=== PATIENT | female | born 1995 | race Caucasian/White ===

== ENCOUNTER 2017-08-05 09:20 | Outpatient (CLI) | payer OTHER ==
[~2017-08-05 09:20] MED LIST: PEPCID AC20 MG PO; ZOFRAN4 MG PO
== END 2017-08-06 10:18 | disposition home or self-care (01) ==
LOC: OBS/DEL 09:20
DX: O47.1 False labor at or after 37 completed weeks of gestation (principal); K29.60 Other gastritis without bleeding

== ENCOUNTER 2017-08-07 13:00 | Inpatient (IN) | payer OTHER ==
[~2017-08-07] VITALS: Ht 157.5 cm; Wt 62.6 kg
== END 2017-08-23 12:46 | DRG 775 ==
LOC: OB/GYN 13:00 → LDR 08-21 06:11 → OB/GYN 08-21 19:23
PROC: 10E0XZZ Delivery of Products of Conception, External Approach (ICD-10-PCS; principal; 2017-08-21)
PROC: 0KQM0ZZ Repair Perineum Muscle, Open Approach (ICD-10-PCS; 2017-08-21)
PROC: 10907ZC Drainage of Amniotic Fluid, Therapeutic from Products of Conception, Via Natural or Artificial Opening (ICD-10-PCS; 2017-08-21)
PROC: 3E033VJ Introduction of Other Hormone into Peripheral Vein, Percutaneous Approach (ICD-10-PCS; 2017-08-21)
PROC: 4A033R1 Measurement of Arterial Saturation, Peripheral, Percutaneous Approach (ICD-10-PCS; 2017-08-21)
PROC: 4A1HXCZ Monitoring of Products of Conception, Cardiac Rate, External Approach (ICD-10-PCS; 2017-08-21)
DX: O70.1 Second degree perineal laceration during delivery (principal); Z37.0 Single live birth; O69.81X0 Labor and delivery complicated by cord around neck, without compression, not applicable or unspecified; Z3A.39 39 weeks gestation of pregnancy